=== PATIENT | female | born 1960 | race Hispanic/Latino ===

== ENCOUNTER 2024-03-15 00:22 | Emergency (ER) | payer MEDICARE, OTHER ==
[2024-03-15 00:24] VITALS: BP 109/46; PULSE 78; RESP 18
== END 2024-03-15 06:35 | disposition home or self-care (01) ==
LOC: EDH 00:22
DX: I25.10 Atherosclerotic heart disease of native coronary artery without angina pectoris (principal); E78.00 Pure hypercholesterolemia, unspecified; E11.649 Type 2 diabetes mellitus with hypoglycemia without coma; I10 Essential (primary) hypertension; F17.200 Nicotine dependence, unspecified, uncomplicated; Z95.1 Presence of aortocoronary bypass graft
CPT/HCPCS: 82948